=== PATIENT | female | born 1965 | race African-American/Black ===

== ENCOUNTER 2016-12-04 06:40 | Emergency (ER) | payer MEDICAID, OTHER ==
[~2016-12-04] VITALS: Ht 162.6 cm; Wt 70.3 kg
[~2016-12-04 06:40] MED LIST: IBUPROFEN600 MG ORAL; NKM
[2016-12-04 07:12] VITALS: BP 97/64
[2016-12-04] MEDS ORDERED: Ketorolac 60mg Inj IM ONE (07:15)
[2016-12-04] MEDS ORDERED: Cyclobenzaprine 10mg Tab ORAL ONE (07:15)
[2016-12-04 07:18] LABS: APPEARANCE,URINE SLIGHTLY CLOUDY; KETONES,URINE NEGATIVE (NEGATIVE); LEUKOCYTE ESTERASE ,URINE 1+ (NEGATIVE); NITRITE,URINE NEGATIVE (NEGATIVE); PH,URINE 7 (4.5-8.0); PROTEIN,URINE NEGATIVE (NEGATIVE); UROBILINOGEN,URINE NORMAL MG/DL (0.0-1.0)
[2016-12-04 07:30] LABS: BACTERIA,URINE MODERATE /HPF; RBC,URINE 0-2 /HPF (0 - 2); SQUAMOUS EPITHELIAL CELL,UR MODERATE /LPF (NONE/OCC)
--- NOTE | 2016-12-04 08:10 | Emergency Room Report ---
History of Present Illness General Chief Complaint: Pain Source: Patient Present Illness HPI 51 YO F with left sided pain for 4 days. Started after "eating something" but no associated nausea/vomiting/diarrhea, fever/chills or urinary complaints. Has been able to eat/drink normally, no effect on the pain. Pain is left sided , 6/10, non-radiating, worse with palpation, movement. Denies heavy lifting, straining. Didnt take OTC meds. Never had before. Allergies: Coded Allergies: ACETAMINOPHEN (Verified Allergy, Mild, Hives, 05/14/13) AMPICILLIN (Verified Allergy, Mild, Hives, 05/14/13) HYDROCODONE BIT (Verified Allergy, Mild, Hives, 05/14/13) PENICILLINS (Verified Allergy, Mild, Hives, 05/14/13) CEPHALEXIN (Verified Allergy, Unknown, 12/04/16) TRAMADOL (Verified Allergy, Unknown, 12/04/16) Patient History Past Medical History: none Past Surgical History: none Pertinent Family History: none Social History: Reports: smoking Last Menstrual Period: jul 2016 Now: No Immunizations: UTD Reviewed Nursing Documentation: PMH: Agreed, PSxH: Agreed Nursing Documentation-PMH Past Medical History: No Stated History Review of Systems All Other Systems: negative except mentioned in HPI Physical Exam Vital Signs Date Time Temp Pulse Resp B/P Pulse Ox O2 Delivery O2 Flow Rate FiO2 12/04/16 06:45 97.3 93 18 97/64 95 Room Air Sp02 EP Interpretation: reviewed, normal General Appearance: normal inspection, well appearing, no apparent distress, alert, GCS 15, non-toxic Head: normocephalic, atraumatic Eyes: bilateral eye EOMI, bilateral eye PERRL ENT: normal ENT inspection, hearing grossly normal, normal voice Neck: normal inspection, full range of motion, supple, no bony tend Respiratory: normal inspection, lungs clear, normal breath sounds, no respiratory distress, no retraction, no wheezing, chest symmetrical, palpation of chest normal Cardiovascular #1: regular rate, rhythm, no edema Gastrointestinal: normal inspection, normal bowel sounds, non tender, soft, no mass, no guarding, no hernia, no pulsatile mass, no rebound Genitourinary: no CVA tenderness Musculoskeletal: normal inspection, back normal, normal range of motion, Hollis' s Sign negative, other - Left sided torso well pain. TTp. Worse with movement. 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 Pain is NOT abdominal. No focal abd ttp. No chest/rib ttp. VSS. Afebrile. No systemic illness or signs. Worse with movement, likely MSK Improved with IM toradol, flexeril Rx With Ibuprofen, Flexeril RICE, ice/heat, PMD followup DC home Last Vital Signs Date Time Temp Pulse Resp B/P Pulse Ox O2 Delivery O2 Flow Rate FiO2 12/04/16 07:12 97.3 90 18 97/64 95 Room Air Status: improved Disposition: HOME, SELF-CARE Referrals: [facility],REFERRING (PCP) GLADYS MACDONALD M.D. Dec 04, 2016 08:10
[2016-12-04] MEDS ORDERED: IBUPROFEN800 MG ORAL (08:12)
[2016-12-04] MEDS ORDERED: CYCLOBENZAPRINE10 MG ORAL (08:12)
[2016-12-04 08:15] VITALS: BP 101/68
[2016-12-06] MEDS ORDERED: NITROFURANTOIN100 M2 ORAL (08:38)
== END 2016-12-04 08:15 | disposition home or self-care (01) ==
LOC: EMR 07:15
DX: M62.838 Other muscle spasm (principal); Z88.0 Allergy status to penicillin; Z88.6 Allergy status to analgesic agent; F17.200 Nicotine dependence, unspecified, uncomplicated
CPT/HCPCS: 81003; 81025; 87086; 87181; 96372; 99283

== ENCOUNTER 2016-12-28 09:34 | Emergency (ER) | payer MEDICAID ==
[~2016-12-28] VITALS: Ht 162.6 cm; Wt 72.6 kg
[~2016-12-28 09:34] MED LIST changes: +CYCLOBENZAPRINE10 MG ORAL; +IBUPROFEN800 MG ORAL; +NITROFURANTOIN100 M2 ORAL
[2016-12-28 09:49] VITALS: BP 104/71
[2016-12-28] MEDS ORDERED: NKM (09:54)
[2016-12-28] MEDS ORDERED: DIPHENHYDRAMINE25 M1 ORAL (10:56)
[2016-12-28] MEDS ORDERED: PREDNISONE20 MG ORAL (10:56)
[2016-12-28 11:05] VITALS: BP 130/80
--- NOTE | 2017-01-01 15:02 | Emergency Room Report ---
History of Present Illness General Chief Complaint: General Complaint Source: Patient Present Illness HPI 51-year-old female presents to ED complaining of bilateral eye swelling and itchiness x10 days. patient states symptoms started with some itchiness and mild swelling over both eyes. Was given antibiotic ointment by her but states the swelling got worse. Patient notes multiple antibiotic allergies. Patient denies any high pain or blurry vision. Denies any photophobia. Denies any discharge. Denies any sore throat or ear ache. No other aggravating or relieving factors. Denies any other associated symptoms Allergies: Coded Allergies: ACETAMINOPHEN (Verified Allergy, Mild, Hives, 05/14/13) AMPICILLIN (Verified Allergy, Mild, Hives, 05/14/13) HYDROCODONE BIT (Verified Allergy, Mild, Hives, 05/14/13) PENICILLINS (Verified Allergy, Mild, Hives, 05/14/13) CEPHALEXIN (Verified Allergy, Unknown, 12/04/16) CLINDAMYCIN (Verified Allergy, Unknown, 12/28/16) TRAMADOL (Verified Allergy, Unknown, 12/04/16) Patient History Past Medical History: none Past Surgical History: none Pertinent Family History: none Social History: Denies: alcohol use, drug use, smoking Now: No Immunizations: UTD Reviewed Nursing Documentation: PMH: Agreed, PSxH: Agreed Nursing Documentation-PMH Past Medical History: No Stated History Review of Systems All Other Systems: negative except mentioned in HPI Physical Exam Vital Signs Date Time Temp Pulse Resp B/P Pulse Ox O2 Delivery O2 Flow Rate FiO2 12/28/16 09:49 98.4 80 16 104/71 98 Room Air Sp02 EP Interpretation: reviewed, normal General Appearance: no apparent distress, alert, GCS 15, non-toxic Head: normocephalic Eyes: bilateral eye EOMI, bilateral eye PERRL, bilateral eye normal inspection , bilateral eye other - bilateral eyelid swelling, bilateral eye visual acuity ENT: hearing grossly normal, normal pharynx, no angioedema, normal voice, TMs + canals normal Neck: normal inspection Respiratory: chest non-tender, lungs clear, normal breath sounds, speaking full sentences Cardiovascular #1: regular rate, rhythm, no edema Gastrointestinal: normal inspection Rectal: deferred Genitourinary: no CVA tenderness Musculoskeletal: normal inspection Neurologic: alert, oriented x3, responsive, motor strength/tone normal, sensory intact, speech normal Psychiatric: normal inspection Skin: normal inspection Lymphatic: normal inspection Medical Decision Making Diagnostic Impression: Primary Impression: Allergic reaction caused by a drug Qualified Codes: T78.40XA - Allergy, unspecified, initial encounter ER Course Hospital Course 51-year-old female presents ED complaining of bilateral swelling to eyes Differential diagnoses include: Cellulitis, dermatitis, insect bite, abscess Clinical course Patient placed on stretcher. After initial history, physical exam reveals a middle aged female in no acute distress. On exam there is swelling to bilateral eyelids. No erythema or discharge. Symptoms likely exacerbated by antibiotic ointment given patient's extensive allergy history Will treat as allergic reaction. No evidence of stridor or tongue swelling or shortness of breath Diagnosis - allergic reaction caused by a drug stable and discharged to home with prescription for benedryl, prednisone. Instructed to followup with PMD. Instructed return to ED if symptoms recur or worsen Last Vital Signs Date Time Temp Pulse Resp B/P Pulse Ox O2 Delivery O2 Flow Rate FiO2 12/28/16 11:05 72 16 130/80 98 Room Air 12/28/16 09:49 98.4 Status: improved Disposition: HOME, SELF-CARE Condition: Stable Scripts Prednisone* (PREDNISONE*) 20 Mg Tablet 40 MG ORAL DAILY, #10 TAB Prov: VIANNEY MCKEON M.D. 12/28/16 Diphenhydramine Hcl* (DIPHENHYDRAMINE HCL*) 25 Mg Capsule 25 MG ORAL Q6H Y for Itching, #30 CAP 0 Refills Prov: VIANNEY MCKEON M.D. 12/28/16 Patient Instructions: Drug Allergy VIANNEY MCKEON M.D. Jan 01, 2017 15:02
== END 2016-12-28 11:07 | disposition home or self-care (01) ==
LOC: EMR 10:04
DX: T78.40XA Allergy, unspecified, initial encounter (principal); X58.XXXA Exposure to other specified factors, initial encounter; Z88.0 Allergy status to penicillin; Z88.8 Allergy status to other drugs, medicaments and biological substances
CPT/HCPCS: 99284

== ENCOUNTER 2017-08-30 17:28 | Inpatient (IN) | payer MEDICAID ==
[~2017-08-30] VITALS: Ht 162.6 cm; Wt 80.7 kg
[~2017-08-30 17:28] MED LIST changes: +DIPHENHYDRAMINE25 M1 ORAL; +PREDNISONE20 MG ORAL
[2017-08-30] MEDS ORDERED: FERROUS SULFAT325 MG ORAL (17:58)
[2017-08-30 18:00] VITALS: BP 127/76
--- NOTE | 2017-08-30 18:19 | Emergency Room Report ---
History of Present Illness General Chief Complaint: Chest Pain Source: Patient Present Illness HPI Patient is a 52-year-old female presented after increased chest pain for the past 30 minutes. Patient reported having increased sharp pain. This did not radiate. Patient had reportedly had a syncopal episode several days ago. Patient reports having increased pain and swelling to her right knee and leg. Patient reports having no prior cardiac history. She states she was recently diagnosed as having a right bundle branch block. Patient states that she had not been having any vomiting or diarrhea. She denies any fever. She reports being a smoker Allergies: Coded Allergies: ACETAMINOPHEN (Verified Allergy, Mild, Hives, 05/14/13) AMPICILLIN (Verified Allergy, Mild, Hives, 05/14/13) HYDROCODONE BIT (Verified Allergy, Mild, Hives, 05/14/13) PENICILLINS (Verified Allergy, Mild, Hives, 05/14/13) CEPHALEXIN (Verified Allergy, Unknown, 12/04/16) CLINDAMYCIN (Verified Allergy, Unknown, 12/28/16) TRAMADOL (Verified Allergy, Unknown, 12/04/16) Patient History Past Medical History: see triage record Reviewed Nursing Documentation: PMH: Agreed, PSxH: Agreed Nursing Documentation-PMH Hx Cardiac Problems: Yes - RIGHT BUNDLE BRANCH BLOCK Review of Systems All Other Systems: negative except mentioned in HPI Physical Exam Vital Signs Date Time Temp Pulse Resp B/P (MAP) Pulse Ox O2 Delivery O2 Flow Rate FiO2 08/30/17 17:31 97.7 78 20 122/82 99 Room Air Sp02 EP Interpretation: reviewed, normal General Appearance: normal inspection, well appearing, no apparent distress, alert, GCS 15 Head: atraumatic ENT: normal ENT inspection, hearing grossly normal, normal voice Neck: normal inspection, full range of motion, supple, no bony tend Respiratory: normal inspection, lungs clear, normal breath sounds, no respiratory distress, no retraction, no wheezing Cardiovascular #1: regular rate, rhythm, no edema Gastrointestinal: normal inspection, normal bowel sounds, non tender, soft, no guarding, no hernia Genitourinary: no CVA tenderness Musculoskeletal: normal inspection, back normal, normal range of motion Neurologic: normal inspection, alert, oriented x3, responsive, 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 Differential diagnosis included but was not limited to acute coronary syndrome, pulmonary embolism, pneumonia, aortic dissection, shingles, pneumothorax, aortic dissection, esophageal rupture, pericarditis. Because of complexity of patient's case laboratory testing and imaging studies were ordered. EKG interpreted by me showed normal sinus rhythm with a rate of 67 with incomplete right bundle-branch block. There were no acute ST or T wave changes. Rhythm strip showed normal sinus rhythm with a rate of 65 without PVCs or ectopy. The patient was given aspirin. Chest x-ray one view interpreted by me showed normal heart size without evident infiltrate CT of the chest read by radiology showed no evidence of a pulmonary embolism or aortic dissection. Dr. Petr Mcbride was contacted for inpatient management due to panel physician Labs Test 08/30/17 17:48 08/30/17 19:05 White Blood Count 9.7 K/UL (4.8-10.8) Red Blood Count 4.14 M/UL (4.20-5.40) Hemoglobin 13.5 G/DL (12.0-16.0) Hematocrit 40.7 % (37.0-47.0) Mean Corpuscular Volume 98 FL (80-99) Mean Corpuscular Hemoglobin 32.5 PG (27.0-31.0) Mean Corpuscular Hemoglobin Concent 33.1 G/DL (32.0-36.0) Red Cell Distribution Width 12.6 % (11.6-14.8) Platelet Count 197 K/UL (150-450) Mean Platelet Volume 8.6 FL (6.5-10.1) Neutrophils (%) (Auto) 43.8 % (45.0-75.0) Lymphocytes (%) (Auto) 43.7 % (20.0-45.0) Monocytes (%) (Auto) 11.3 % (1.0-10.0) Eosinophils (%) (Auto) 0.2 % (0.0-3.0) Basophils (%) (Auto) 1.1 % (0.0-2.0) D-Dimer 0.47 mg/L FEU (0.00-0.49) Sodium Level 142 MMOL/L (136-145) Potassium Level 3.5 MMOL/L (3.5-5.1) Chloride Level 104 MMOL/L (98-107) Carbon Dioxide Level 28 MMOL/L (21-32) Anion Gap 10 mmol/L (5-15) Blood Urea Nitrogen 12 mg/dL (7-18) Creatinine 1.0 MG/DL (0.55-1.30) Estimat Glomerular Filtration Rate > 60 mL/min (>60) Glucose Level 99 MG/DL (74-106) Calcium Level 9.3 MG/DL (8.5-10.1) Total Bilirubin 0.2 MG/DL (0.2-1.0) Aspartate Amino Transf (AST/SGOT) 27 U/L (15-37) Alanine Aminotransferase (ALT/SGPT) 45 U/L (12-78) Alkaline Phosphatase 127 U/L (46-116) Total Creatine Kinase 139 U/L (26-308) Creatine Kinase MB 1.2 NG/ML (0.0-3.6) Creatine Kinase MB Relative Index 0.8 Troponin I 0.000 ng/mL (0.000-0.056) Pro-B-Type Natriuretic Peptide 15 pg/mL (0-125) Total Protein 7.7 G/DL (6.4-8.2) Albumin 3.6 G/DL (3.4-5.0) Globulin 4.1 g/dL Albumin/Globulin Ratio 0.9 (1.0-2.7) Urine Color Pale yellow Urine Appearance Clear Urine pH 8 (4.5-8.0) Urine Specific [place] 1.010 (1.005-1.035) Urine Protein Negative (NEGATIVE) Urine Glucose (UA) Negative (NEGATIVE) Urine Ketones Negative (NEGATIVE) Urine Occult Blood Negative (NEGATIVE) Urine Nitrite Negative (NEGATIVE) Urine Bilirubin Negative (NEGATIVE) Urine Urobilinogen Normal MG/DL (0.0-1.0) Urine Leukocyte Esterase Negative (NEGATIVE) Urine Opiates Screen Negative (NEGATIVE) Urine Barbiturates Screen Negative (NEGATIVE) Phencyclidine (PCP) Screen Negative (NEGATIVE) Urine Amphetamines Screen Negative (NEGATIVE) Urine Benzodiazepines Screen Negative (NEGATIVE) Urine Cocaine Screen Negative (NEGATIVE) Urine Marijuana (THC) Screen Positive (NEGATIVE) EKG Diagnostic Results Rate: normal Rhythm: NSR ST Segments: no acute changes ASA given to the pt in ED: Yes Rhythm Strip Diag. Results EP Interpretation: yes Rhythm: NSR, no PVC's, no ectopy Last Vital Signs Date Time Temp Pulse Resp B/P (MAP) Pulse Ox O2 Delivery O2 Flow Rate FiO2 08/30/17 17:31 97.7 78 20 122/82 99 Room Air Status: unchanged Disposition: ADMITTED INPATIENT Condition: Serious Yogesh Streeter Aug 30, 2017 18:18
[2017-08-30 18:26] LABS: BASOPHILS % (AUTO) 1.1 % (0.0-2.0); EOSINOPHILS % (AUTO) 0.2 % (0.0-3.0); LYMPHOCYTES % (AUTO) 43.7 % (20.0-45.0); MEAN CORPUSCULAR HEMOGLOBIN 32.5 PG (27.0-31.0); MEAN CORPUSCULAR HGB CONC 33.1 G/DL (32.0-36.0); MEAN CORPUSCULAR VOLUME 98 FL (80-99); MEAN PLATELET VOLUME 8.6 FL (6.5-10.1); MONOCYTES % (AUTO) 11.3 % (1.0-10.0); NEUTROPHILS % (AUTO) 43.8 % (45.0-75.0); PLATELET COUNT 197 K/UL (150-450); RED BLOOD COUNT 4.14 M/UL (4.20-5.40); RED CELL DISTRIBUTION WIDTH 12.6 % (11.6-14.8); WHITE BLOOD COUNT 9.7 K/UL (4.8-10.8)
[2017-08-30] MEDS ORDERED: Aspirin Baby 81mg ORAL ONE (18:30)
[2017-08-30] MEDS ORDERED: WOMEN'S MULTI200 MCG PO (18:42)
[2017-08-30 18:48] LABS: ALANINE AMINOTRANSFERASE 45 U/L (12-78); ALBUMIN/GLOBULIN RATIO 0.9 (1.0-2.7); ANION GAP 10 mmol/L (5-15); ASPARTATE AMINO TRANSFERASE 27 U/L (15-37); CALCIUM 9.3 MG/DL (8.5-10.1); CARBON DIOXIDE 28 MMOL/L (21-32); CHLORIDE 104 MMOL/L (98-107); CKMB 1.2 NG/ML (0.0-3.6); GLOMERULAR FILTRATION RATE > 60 mL/min (>60); POTASSIUM 3.5 MMOL/L (3.5-5.1); SODIUM 142 MMOL/L (136-145); TOTAL PROTEIN 7.7 G/DL (6.4-8.2)
[2017-08-30 19:22] LABS: APPEARANCE,URINE CLEAR; KETONES,URINE NEGATIVE (NEGATIVE); LEUKOCYTE ESTERASE ,URINE NEGATIVE (NEGATIVE); NITRITE,URINE NEGATIVE (NEGATIVE); PH,URINE 8 (4.5-8.0); PROTEIN,URINE NEGATIVE (NEGATIVE); UROBILINOGEN,URINE NORMAL MG/DL (0.0-1.0)
[2017-08-30 20:15] VITALS: BP 101/64
[2017-08-30] MEDS ORDERED: Ketorolac 30mg Inj IV PRN (22:00)
[2017-08-30] MEDS ORDERED: Nitroglycerin Subl 0.4mg tab SL PRN (22:00)
[2017-08-30] MEDS ORDERED: dilTIAZem HCl 25mg/5ml Inj IV PRN (22:00)
[2017-08-30] MEDS ORDERED: Enalaprilat 2.5mg/2ml Inj IV PRN (22:00)
[2017-08-30] MEDS ORDERED: Miralax 17gm pkt ORAL PRN (22:00)
[2017-08-30] MEDS ORDERED: Albuterol/Ipratropium 3ml neb HHN PRN (22:00)
--- NOTE | 2017-08-30 22:38 | History & Physical ---
History and Physical History & Physicial Petr Mcbride MD Aug 30, 2017 22:38
[2017-08-31] VITALS: BP 108/62
--- NOTE | 2017-08-31 | History and Physical Report ---
DATE OF ADMISSION: 08/30/2017 CHIEF COMPLAINT: Chest pain. HISTORY OF PRESENT ILLNESS: This is a 52-year-old female, denies any past medical history and past surgical history except the right bundle-branch block, who presented to emergency room complaining about chest pain mostly left-sided chest pain, retrosternal. She stated that does not radiate to the neck, back, or shoulder. It is not associated with nausea or vomiting, not associated with diaphoresis, no exacerbated factor. She stated she has been having right knee pain and swelling,went to see her primary doctor a couple of weeks ago and was diagnosed with right bundle-branch block. After was worked up for syncope, she has been having multiple recurrent syncope, last time was three weeks ago. Shortly after initial evaluation in the emergency room, the patient was admitted to the hospital with chest pain, possible acute coronary syndrome. PAST MEDICAL HISTORY AND PAST SURGICAL HISTORY: As above. History of breast nodule biopsy as well as right bundle-branch block, recently diagnosed. MEDICATIONS: At home is none. ALLERGIES: Acetaminophen, ampicillin, [place], penicillin, Keflex, , and tramadol. SOCIAL HISTORY: The patient smokes 10 cigarettes a day over 30 years pack smoker. Drinks wine at night one bottle on the weekends. She smokes marijuana. FAMILY HISTORY: Sister and brother with history of epilepsy and mother with breast cancer. Father with Alzheimer. REVIEW OF SYSTEMS: Mostly as above. Denies any dysuria, frequency, hematuria, or hematochezia. Denies any hemoptysis or hematochezia. Denies any suicidal or homicidal ideation. Denies any loss of consciousness. Denies any double vision, however, the patient had syncopal episodes in the past, recurrent. Denies any suicidal or homicidal ideation. Denies any epilepsy. PHYSICAL EXAMINATION: VITAL SIGNS: On admission, temperature 97.7 degrees, pulse of 78, respirations 20, and blood pressure 122/82. GENERAL: The patient awake, responsive, no acute distress. HEAD AND NECK: Pupils are equal and reactive to light. Extraocular movements are intact. NECK: Supple. No JVD. LUNGS: Good air entry. No wheezing or rales. HEART: S1 and S2. Regular rhythm. No gallops. ABDOMEN: Soft, nondistended, and nontender. Positive bowel sounds. EXTREMITIES: No cyanosis, clubbing, or edema. NEUROLOGIC: Cranial nerves II through XII grossly intact. Motor is 5/5 in all extremities. LABORATORY AND DIAGNOSTIC DATA: On admission, EKG sinus rhythm with marked sinus arrhythmia, ventricular rate of 67. No ST elevation was noted, no right bundle-branch was identified. The patient has marked sinus arrhythmias. Laboratory significant for WBC of 9.7, hemoglobin of 13, hematocrit 40, and platelet is 197. First troponin 0.000. Sodium is 142, potassium 2.5, chloride 104, bicarbonate 28, BUN 12, and creatinine 1.0. AST of 27 and ALT of 45. ProBNP of 15. Albumin is 3.6. D-dimer is 0.47. Urine drug screen is marijuana. UA is essentially unremarkable. ASSESSMENT: 1. Chest pain, possible acute coronary syndrome. 2. Prior history of syncope. PLAN: Admit the patient to telemetry. We will follow up with a stress test in the morning. A 2D echocardiogram. Discussed with the patient as well as family member at the bedside extensively with regard to plan of care. cardiac enzymes, aspirin. Discussed with Dr. Carpio, pulmonary critical care and Dr. Conor Krause from Cardiology. Petr Mcbride M.D. DR: Roni JOB#: [id number] CC:
[2017-08-31 08:00] VITALS: BP 94/60
--- NOTE | 2017-08-31 08:25 | Cardiology Progress Note ---
Assessment/Plan Assessment/Plan The patient is seen and examined, full consult note will be dictated shortly. Objective Last 24 Hour Vital Signs Date Time Temp Pulse Resp B/P (MAP) Pulse Ox O2 Delivery O2 Flow Rate FiO2 08/31/17 04:00 63 08/31/17 04:00 97.5 64 18 94 Room Air 08/31/17 01:20 59 18 Room Air 21 08/31/17 00:00 58 08/31/17 00:00 97.2 60 18 108/62 96 Room Air 08/30/17 21:27 67 08/30/17 20:50 98.5 71 15 101/64 99 Room Air 08/30/17 20:15 71 15 101/64 99 Room Air 08/30/17 18:00 98.5 77 12 127/76 Room Air 08/30/17 18:00 77 Room Air 08/30/17 17:31 97.7 78 20 122/82 99 Room Air Laboratory Tests Test 08/30/17 17:48 08/30/17 19:05 08/31/17 07:55 White Blood Count 9.7 K/UL (4.8-10.8) Pending Red Blood Count 4.14 M/UL (4.20-5.40) L Pending Hemoglobin 13.5 G/DL (12.0-16.0) Pending Hematocrit 40.7 % (37.0-47.0) Pending Mean Corpuscular Volume 98 FL (80-99) Pending Mean Corpuscular Hemoglobin 32.5 PG (27.0-31.0) H Pending Mean Corpuscular Hemoglobin Concent 33.1 G/DL (32.0-36.0) Pending Red Cell Distribution Width 12.6 % (11.6-14.8) Pending Platelet Count 197 K/UL (150-450) Pending Mean Platelet Volume 8.6 FL (6.5-10.1) Pending Neutrophils (%) (Auto) 43.8 % (45.0-75.0) L Pending Lymphocytes (%) (Auto) 43.7 % (20.0-45.0) Pending Monocytes (%) (Auto) 11.3 % (1.0-10.0) H Pending Eosinophils (%) (Auto) 0.2 % (0.0-3.0) Pending Basophils (%) (Auto) 1.1 % (0.0-2.0) Pending D-Dimer 0.47 mg/L FEU (0.00-0.49) Sodium Level 142 MMOL/L (136-145) Potassium Level 3.5 MMOL/L (3.5-5.1) Chloride Level 104 MMOL/L (98-107) Carbon Dioxide Level 28 MMOL/L (21-32) Anion Gap 10 mmol/L (5-15) Blood Urea Nitrogen 12 mg/dL (7-18) Creatinine 1.0 MG/DL (0.55-1.30) Estimat Glomerular Filtration Rate > 60 mL/min (>60) Glucose Level 99 MG/DL (74-106) Calcium Level 9.3 MG/DL (8.5-10.1) Total Bilirubin 0.2 MG/DL (0.2-1.0) Aspartate Amino Transf (AST/SGOT) 27 U/L (15-37) Alanine Aminotransferase (ALT/SGPT) 45 U/L (12-78) Alkaline Phosphatase 127 U/L (46-116) H Total Creatine Kinase 139 U/L (26-308) Creatine Kinase MB 1.2 NG/ML (0.0-3.6) Creatine Kinase MB Relative Index 0.8 Troponin I 0.000 ng/mL (0.000-0.056) Pending Pro-B-Type Natriuretic Peptide 15 pg/mL (0-125) Total Protein 7.7 G/DL (6.4-8.2) Albumin 3.6 G/DL (3.4-5.0) Globulin 4.1 g/dL Albumin/Globulin Ratio 0.9 (1.0-2.7) L Urine Color Pale yellow Urine Appearance Clear Urine pH 8 (4.5-8.0) Urine Specific [place] 1.010 (1.005-1.035) Urine Protein Negative (NEGATIVE) Urine Glucose (UA) Negative (NEGATIVE) Urine Ketones Negative (NEGATIVE) Urine Occult Blood Negative (NEGATIVE) Urine Nitrite Negative (NEGATIVE) Urine Bilirubin Negative (NEGATIVE) Urine Urobilinogen Normal MG/DL (0.0-1.0) Urine Leukocyte Esterase Negative (NEGATIVE) Urine Opiates Screen Negative (NEGATIVE) Urine Barbiturates Screen Negative (NEGATIVE) Phencyclidine (PCP) Screen Negative (NEGATIVE) Urine Amphetamines Screen Negative (NEGATIVE) Urine Benzodiazepines Screen Negative (NEGATIVE) Urine Cocaine Screen Negative (NEGATIVE) Urine Marijuana (THC) Screen Positive (NEGATIVE) H Prothrombin Time Pending Prothromb Time International Ratio Pending Activated Partial Thromboplast Time Pending C-Reactive Protein, Quantitative Pending Triglycerides Level Pending Cholesterol Level Pending LDL Cholesterol Pending HDL Cholesterol Pending Cholesterol/HDL Ratio Pending Thyroid Stimulating Hormone (TSH) Pending HERIBERTO REDDY Aug 31, 2017 08:25
[2017-08-31 08:29] LABS: BASOPHILS % (AUTO) 0.8 % (0.0-2.0); EOSINOPHILS % (AUTO) 0.3 % (0.0-3.0); LYMPHOCYTES % (AUTO) 36.6 % (20.0-45.0); MEAN CORPUSCULAR HEMOGLOBIN 32.9 PG (27.0-31.0); MEAN CORPUSCULAR HGB CONC 33.4 G/DL (32.0-36.0); MEAN CORPUSCULAR VOLUME 99 FL (80-99); MONOCYTES % (AUTO) 11.4 % (1.0-10.0); NEUTROPHILS % (AUTO) 50.9 % (45.0-75.0); PLATELET COUNT 207 K/UL (150-450); RED BLOOD COUNT 3.88 M/UL (4.20-5.40); RED CELL DISTRIBUTION WIDTH 12.5 % (11.6-14.8); WHITE BLOOD COUNT 7.1 K/UL (4.8-10.8)
[2017-08-31 08:34] LABS: INR 0.9 (0.9-1.1); PROTHROMBIN TIME 9.4 SEC (9.30-11.50)
[2017-08-31 08:53] LABS: CHOLESTEROL 189 MG/DL (< 200); CHOLESTEROL/HDL RATIO 3.6 (3.3-4.4); CRP QUANT 1.8 mg/dL (0.00-0.90); THYROID STIMULATING HORMONE 2.546 uiU/mL (0.360-3.740)
--- NOTE | 2017-08-31 08:53 | Diagnostic Imaging Report ---
Indication: SOB Technique: One view of the chest Comparison: none Findings: Lungs and pleural spaces are clear. Heart size is normal. Impression: No acute process
[2017-08-31] MEDS ORDERED: Aspirin Baby 81mg ORAL SCH (09:00)
[2017-08-31] MEDS ORDERED: Heparin 5000 units/ml inj SUBQ SCH (09:00)
--- NOTE | 2017-08-31 09:48 | Diagnostic Imaging Report ---
ndication: Chest pain, shortness of breath Technique: IV administration nonionic contrast. Spiral acquisitions obtained from the lung bases to the lung apices. Multiplanar and 3-D reconstructions were generated. Total dose length product IV mGycm. CTDIvol(s) 12, 63, 19 mGy. Dose reduction achieved using automated exposure control Comparison: None Findings: There is good quality opacification of the pulmonary arteries. No intraluminal filling defects or other findings to suggest acute pulmonary embolus are demonstrated. No right ventricular dilatation or pulmonary arterial dilatation is demonstrated. No thoracic aortic aneurysm or dissection. Prominent superior intercostal vein is incidentally noted. The lungs and pleural spaces are clear other than minimal posterior dependent atelectatic changes. Right breast demonstrates a 15 mm soft tissue attenuation nodule. No axillary or chest wall mass or adenopathy otherwise. The included portions of the thyroid are unremarkable. No mediastinal or hilar mass or adenopathy. Normal heart size. No pericardial effusion The included upper abdominal anatomy is unremarkable. Impression: No evidence of acute pulmonary embolus or other acute thoracic pathology This agrees with the preliminary interpretation provided overnight by [facility] cardiology service 15 mm right breast nodule. Further mammographic and sonographic evaluation recommended. This finding was not described on the [facility] report. Dr. Mcbride notified of this at the time of interpretation The CT scanner at [facility] is accredited by the [employer] and the scans are performed using protocols designed to limit radiation exposure to as low as reasonably achievable to attain images of sufficient resolution adequate for diagnostic evaluation.
--- NOTE | 2017-08-31 11:58 | Consultation ---
History of Present Illness General Date patient seen: Aug 30, 2017 Chief Complaint: Chest Pain Referring physician: dr Mcbride Present Illness HPI 52-year-old female presented after increased chest pain for the past 30 minutes. Patient had reportedly had a syncopal episode several days ago. Patient reports having increased pain and swelling to her right knee and leg. She was recently diagnosed as having a right bundle branch block. she is admitted to telemetry for further work up. Allergies: Coded Allergies: AMPICILLIN (Verified Allergy, Mild, Hives, 05/14/13) HYDROCODONE BIT (Verified Allergy, Mild, Hives, 05/14/13) PENICILLINS (Verified Allergy, Mild, Hives, 05/14/13) CEPHALEXIN (Verified Allergy, Unknown, 12/04/16) CLINDAMYCIN (Verified Allergy, Unknown, 12/28/16) TRAMADOL (Verified Allergy, Unknown, 12/04/16) Medication History Scheduled Ferrous Sulfate* (Ferrous Sulfate*), 325 MG ORAL TWICE A DAY, (Reported) Folic Acid/Multivit-Minerals (Women's Multivitamin Gummies), 200 MCG PO DAILY, ( Reported) Discontinued Medications Diphenhydramine Hcl* (Diphenhydramine Hcl*), 25 MG ORAL Q6H PRN for Itching Discontinued Reason: Therapy completed Prednisone* (Prednisone*), 40 MG ORAL DAILY Discontinued Reason: Therapy completed Patient History Healthcare decision maker Resuscitation status Full Code Advanced Directive on File Past Medical/Surgical History Past Medical/Surgical History: (1) No significant past medical history Review of Systems All Other Systems: negative except mentioned in HPI Physical Exam General Appearance: WD/WN Lines, tubes and drains: peripheral, PICC HEENT: normocephalic, atraumatic Neck: non-tender, normal alignment Respiratory/Chest: chest wall non-tender, lungs clear Breasts: no masses Cardiovascular/Chest: normal peripheral pulses Abdomen: normal bowel sounds, soft, hyperactive bowel sounds Extremities: normal range of motion Last 24 Hour Vital Signs Date Time Temp Pulse Resp B/P (MAP) Pulse Ox O2 Delivery O2 Flow Rate FiO2 08/31/17 08:00 97.6 59 21 94/60 98 Room Air 08/31/17 08:00 54 08/31/17 06:52 56 18 Room Air 21 08/31/17 04:00 63 08/31/17 04:00 97.5 64 18 94 Room Air 08/31/17 01:20 59 18 Room Air 21 08/31/17 00:00 58 08/31/17 00:00 97.2 60 18 108/62 96 Room Air 08/30/17 21:27 67 08/30/17 20:50 98.5 71 15 101/64 99 Room Air 08/30/17 20:15 71 15 101/64 99 Room Air 08/30/17 18:00 98.5 77 12 127/76 Room Air 08/30/17 18:00 77 Room Air 08/30/17 17:31 97.7 78 20 122/82 99 Room Air Laboratory Tests Test 08/30/17 17:48 08/30/17 19:05 08/31/17 07:55 White Blood Count 9.7 K/UL (4.8-10.8) 7.1 K/UL (4.8-10.8) Red Blood Count 4.14 M/UL (4.20-5.40) L 3.88 M/UL (4.20-5.40) L Hemoglobin 13.5 G/DL (12.0-16.0) 12.8 G/DL (12.0-16.0) Hematocrit 40.7 % (37.0-47.0) 38.2 % (37.0-47.0) Mean Corpuscular Volume 98 FL (80-99) 99 FL (80-99) Mean Corpuscular Hemoglobin 32.5 PG (27.0-31.0) H 32.9 PG (27.0-31.0) H Mean Corpuscular Hemoglobin Concent 33.1 G/DL (32.0-36.0) 33.4 G/DL (32.0-36.0) Red Cell Distribution Width 12.6 % (11.6-14.8) 12.5 % (11.6-14.8) Platelet Count 197 K/UL (150-450) 207 K/UL (150-450) Mean Platelet Volume 8.6 FL (6.5-10.1) 9.0 FL (6.5-10.1) Neutrophils (%) (Auto) 43.8 % (45.0-75.0) L 50.9 % (45.0-75.0) Lymphocytes (%) (Auto) 43.7 % (20.0-45.0) 36.6 % (20.0-45.0) Monocytes (%) (Auto) 11.3 % (1.0-10.0) H 11.4 % (1.0-10.0) H Eosinophils (%) (Auto) 0.2 % (0.0-3.0) 0.3 % (0.0-3.0) Basophils (%) (Auto) 1.1 % (0.0-2.0) 0.8 % (0.0-2.0) D-Dimer 0.47 mg/L FEU (0.00-0.49) Sodium Level 142 MMOL/L (136-145) Potassium Level 3.5 MMOL/L (3.5-5.1) Chloride Level 104 MMOL/L (98-107) Carbon Dioxide Level 28 MMOL/L (21-32) Anion Gap 10 mmol/L (5-15) Blood Urea Nitrogen 12 mg/dL (7-18) Creatinine 1.0 MG/DL (0.55-1.30) Estimat Glomerular Filtration Rate > 60 mL/min (>60) Glucose Level 99 MG/DL (74-106) Calcium Level 9.3 MG/DL (8.5-10.1) Total Bilirubin 0.2 MG/DL (0.2-1.0) Aspartate Amino Transf (AST/SGOT) 27 U/L (15-37) Alanine Aminotransferase (ALT/SGPT) 45 U/L (12-78) Alkaline Phosphatase 127 U/L (46-116) H Total Creatine Kinase 139 U/L (26-308) Creatine Kinase MB 1.2 NG/ML (0.0-3.6) Creatine Kinase MB Relative Index 0.8 Troponin I 0.000 ng/mL (0.000-0.056) 0.000 ng/mL (0.000-0.056) Pro-B-Type Natriuretic Peptide 15 pg/mL (0-125) Total Protein 7.7 G/DL (6.4-8.2) Albumin 3.6 G/DL (3.4-5.0) Globulin 4.1 g/dL Albumin/Globulin Ratio 0.9 (1.0-2.7) L Urine Color Pale yellow Urine Appearance Clear Urine pH 8 (4.5-8.0) Urine Specific [place] 1.010 (1.005-1.035) Urine Protein Negative (NEGATIVE) Urine Glucose (UA) Negative (NEGATIVE) Urine Ketones Negative (NEGATIVE) Urine Occult Blood Negative (NEGATIVE) Urine Nitrite Negative (NEGATIVE) Urine Bilirubin Negative (NEGATIVE) Urine Urobilinogen Normal MG/DL (0.0-1.0) Urine Leukocyte Esterase Negative (NEGATIVE) Urine Opiates Screen Negative (NEGATIVE) Urine Barbiturates Screen Negative (NEGATIVE) Phencyclidine (PCP) Screen Negative (NEGATIVE) Urine Amphetamines Screen Negative (NEGATIVE) Urine Benzodiazepines Screen Negative (NEGATIVE) Urine Cocaine Screen Negative (NEGATIVE) Urine Marijuana (THC) Screen Positive (NEGATIVE) H Prothrombin Time 9.4 SEC (9.30-11.50) Prothromb Time International Ratio 0.9 (0.9-1.1) Activated Partial Thromboplast Time 21 SEC (23-33) L C-Reactive Protein, Quantitative 1.8 mg/dL (0.00-0.90) H Triglycerides Level 53 MG/DL (0-200) Cholesterol Level 189 MG/DL (< 200) LDL Cholesterol 124 mg/dL (<100) H HDL Cholesterol 52 MG/DL (40-60) Cholesterol/HDL Ratio 3.6 (3.3-4.4) Thyroid Stimulating Hormone (TSH) 2.546 uiU/mL (0.360-3.740) Height (Feet): 5 Height (Inches): 4.00 Weight (Pounds): 178 Medications Current Medications Medications (Trade) Dose Ordered Sig/Precious Route PRN Reason Start Time Stop Time Status Last Admin Dose Admin Albuterol/ Ipratropium (Albuterol/ Ipratropium) 3 ml Q4H PRN HHN Shortness of Breath 08/30/17 22:00 09/04/17 21:59 Aspirin (ASA) 81 mg DAILY ORAL 09/01/17 09:00 10/01/17 08:59 Diltiazem HCl (Cardizem) 10 mg EVERY HOUR PRN IV heart rate more than 120, 08/30/17 22:00 09/29/17 21:59 Enalaprilat (Vasotec) 2.5 mg Q6H PRN IV sbp more than 160 08/30/17 22:00 09/29/17 21:59 Heparin Sodium (Porcine) (Heparin 5000 units/ml) 5,000 units EVERY 12 HOURS SUBQ 08/31/17 09:00 09/30/17 08:59 08/31/17 08:18 Ketorolac Tromethamine (Toradol 30mg) 30 mg Q6H PRN IV moderate pain ( 4-6) 08/30/17 22:00 09/04/17 21:59 Nitroglycerin (Ntg) 0.4 mg Every 5 Minutes PRN SL Prn Chest Pain 08/30/17 22:00 09/29/17 21:59 Ondansetron HCl (Zofran) 4 mg Q6H PRN IVP Nausea & Vomiting 08/30/17 22:00 09/29/17 21:59 Polyethylene Glycol (Miralax) 17 gm DAILYPRN PRN ORAL Constipation 08/30/17 22:00 09/29/17 21:59 Temazepam (Restoril) 15 mg HSPRN PRN ORAL Insomnia 08/30/17 22:00 09/06/17 21:59 Assessment/Plan Problem List: (1) ACS (acute coronary syndrome) ICD Codes: I24.9 - Acute ischemic heart disease, unspecified SNOMED: 056728643 (2) Syncope ICD Codes: R55 - Syncope and collapse SNOMED: 427675215 Assessment/Plan serial ekg echo cardio to see stress testing keep in [facility] Calle Aug 31, 2017 11:58
[2017-08-31 12:00] VITALS: BP 108/59
--- NOTE | 2017-08-31 12:00 | Pulmonology Progress Note ---
Assessment/Plan Problems: (1) ACS (acute coronary syndrome) (2) Syncope Assessment/Plan stress study pending symptomatic treatment dc home if stress study negative. Subjective ROS Limited/Unobtainable: No Constitutional: Reports: no symptoms Respiratory: Reports: no symptoms Allergies: Coded Allergies: AMPICILLIN (Verified Allergy, Mild, Hives, 05/14/13) HYDROCODONE BIT (Verified Allergy, Mild, Hives, 05/14/13) PENICILLINS (Verified Allergy, Mild, Hives, 05/14/13) CEPHALEXIN (Verified Allergy, Unknown, 12/04/16) CLINDAMYCIN (Verified Allergy, Unknown, 12/28/16) TRAMADOL (Verified Allergy, Unknown, 12/04/16) Objective Last 24 Hour Vital Signs Date Time Temp Pulse Resp B/P (MAP) Pulse Ox O2 Delivery O2 Flow Rate FiO2 08/31/17 08:00 97.6 59 21 94/60 98 Room Air 08/31/17 08:00 54 08/31/17 06:52 56 18 Room Air 08/31/17 04:00 63 08/31/17 04:00 97.5 64 18 94 Room Air 08/31/17 01:20 59 18 Room Air 21 08/31/17 00:00 58 08/31/17 00:00 97.2 60 18 108/62 96 Room Air 08/30/17 21:27 67 08/30/17 20:50 98.5 71 15 101/64 99 Room Air 08/30/17 20:15 71 15 101/64 99 Room Air 08/30/17 18:00 98.5 77 12 127/76 Room Air 08/30/17 18:00 77 Room Air 08/30/17 17:31 97.7 78 20 122/82 99 Room Air General Appearance: WD/WN HEENT: normocephalic, atraumatic Respiratory/Chest: chest wall non-tender, lungs clear Breasts: no masses Cardiovascular: normal peripheral pulses, regularly irregular Abdomen: normal bowel sounds, soft, non tender Genitourinary: normal external genitalia Laboratory Tests 08/30/17 17:48: White Blood Count 9.7, Red Blood Count 4.14L, Hemoglobin 13.5, Hematocrit 40.7, Mean Corpuscular Volume 98, Mean Corpuscular Hemoglobin 32.5H, Mean Corpuscular Hemoglobin Concent 33.1, Red Cell Distribution Width 12.6, Platelet Count 197, Mean Platelet Volume 8.6, Neutrophils (%) (Auto) 43.8L, Lymphocytes (%) (Auto) 43.7, Monocytes (%) (Auto) 11.3H, Eosinophils (%) (Auto) 0.2, Basophils (%) ( Auto) 1.1, D-Dimer 0.47, Sodium Level 142, Potassium Level 3.5, Chloride Level 104, Carbon Dioxide Level 28, Anion Gap 10, Blood Urea Nitrogen 12, Creatinine 1.0, Estimat Glomerular Filtration Rate > 60, Glucose Level 99, Calcium Level 9.3, Total Bilirubin 0.2, Aspartate Amino Transf (AST/SGOT) 27, Alanine Aminotransferase (ALT/SGPT) 45, Alkaline Phosphatase 127H, Total Creatine Kinase 139, Creatine Kinase MB 1.2, Creatine Kinase MB Relative Index 0.8, Troponin I 0.000, Pro-B-Type Natriuretic Peptide 15, Total Protein 7.7, Albumin 3.6, Globulin 4.1, Albumin/Globulin Ratio 0.9L 08/30/17 19:05: Urine Color Pale yellow, Urine Appearance Clear, Urine pH 8, Urine Specific [place] 1.010, Urine Protein Negative, Urine Glucose (UA) Negative, Urine Ketones Negative, Urine Occult Blood Negative, Urine Nitrite Negative, Urine Bilirubin Negative, Urine Urobilinogen Normal, Urine Leukocyte Esterase Negative , Urine Opiates Screen Negative, Urine Barbiturates Screen Negative, Phencyclidine (PCP) Screen Negative, Urine Amphetamines Screen Negative, Urine Benzodiazepines Screen Negative, Urine Cocaine Screen Negative, Urine Marijuana (THC) Screen PositiveH 08/31/17 07:55: White Blood Count 7.1, Red Blood Count 3.88L, Hemoglobin 12.8, Hematocrit 38.2, Mean Corpuscular Volume 99, Mean Corpuscular Hemoglobin 32.9H, Mean Corpuscular Hemoglobin Concent 33.4, Red Cell Distribution Width 12.5, Platelet Count 207, Mean Platelet Volume 9.0, Neutrophils (%) (Auto) 50.9, Lymphocytes (%) (Auto) 36.6, Monocytes (%) (Auto) 11.4H, Eosinophils (%) (Auto) 0.3, Basophils (%) ( Auto) 0.8, Troponin I 0.000, Prothrombin Time 9.4, Prothromb Time International Ratio 0.9, Activated Partial Thromboplast Time 21L, C-Reactive Protein, Quantitative 1.8H, Triglycerides Level 53, Cholesterol Level 189, LDL Cholesterol 124H, HDL Cholesterol 52, Cholesterol/HDL Ratio 3.6, Thyroid Stimulating Hormone (TSH) 2.546 Current Medications Medications (Trade) Dose Ordered Sig/Precious Route PRN Reason Start Time Stop Time Status Last Admin Dose Admin Albuterol/ Ipratropium (Albuterol/ Ipratropium) 3 ml Q4H PRN HHN Shortness of Breath 08/30/17 22:00 09/04/17 21:59 Aspirin (ASA) 81 mg DAILY ORAL 09/01/17 09:00 10/01/17 08:59 Diltiazem HCl (Cardizem) 10 mg EVERY HOUR PRN IV heart rate more than 120, 08/30/17 22:00 09/29/17 21:59 Enalaprilat (Vasotec) 2.5 mg Q6H PRN IV sbp more than 160 08/30/17 22:00 09/29/17 21:59 Heparin Sodium (Porcine) (Heparin 5000 units/ml) 5,000 units EVERY 12 HOURS SUBQ 08/31/17 09:00 09/30/17 08:59 08/31/17 08:18 Ketorolac Tromethamine (Toradol 30mg) 30 mg Q6H PRN IV moderate pain ( 4-6) 08/30/17 22:00 09/04/17 21:59 Nitroglycerin (Ntg) 0.4 mg Every 5 Minutes PRN SL Prn Chest Pain 08/30/17 22:00 09/29/17 21:59 Ondansetron HCl (Zofran) 4 mg Q6H PRN IVP Nausea & Vomiting 08/30/17 22:00 09/29/17 21:59 Polyethylene Glycol (Miralax) 17 gm DAILYPRN PRN ORAL Constipation 08/30/17 22:00 09/29/17 21:59 Temazepam (Restoril) 15 mg HSPRN PRN ORAL Insomnia 08/30/17 22:00 09/06/17 21:59 [facility] BLUNT Aug 31, 2017 12:00
[2017-08-31] MEDS ORDERED: Lexiscan 0.4mg/5ml syringe IV ONE (13:00)
--- NOTE | 2017-08-31 13:31 | Cardiology Report ---
APPROVED REPORT EXAM: Two-dimensional and M-mode echocardiogram with Doppler and color Doppler. INDICATION Peripheral Edema Left ventricular function M-Mode DIMENSIONS IVSd0.7 (0.7-1.1cm)Left Atrium (MM)3.6 (1.6-4.0cm) LVDd4.8 (3.5-5.6cm)Aortic Root3.0 (2.0-3.7cm) PWd0.8 (0.7-1.1cm)Aortic Cusp Exc.2.0 (1.5-2.0cm) LVDs3.2 (2.5-4.0cm) PWs1.4 cm Normal left ventricular chamber size, systolic function and wall motion. Left ventricular ejection fraction estimated to be 55-60 %. No evidence of left ventricular hypertrophy. No evidence of pericardial effusion. Mild left atrial enlargement. Right cardiac chamber sizes are within normal limits. Mild focal aortic valve sclerosis with adequate cusp excursion. Mildly thickened mitral valve leaflets with normal excursion. Mild mitral annulus and aortic root calcification. Pulmonic valve not well visualized. Normal tricuspid valve structure. IVC measured at 2.1cm with physiologic collapse. A color flow and spectral Doppler study was performed and revealed: No aortic regurgitation. Trace mitral regurgitation. Mitral diastolic velocities suggests normal diastolic function. Trace tricuspid regurgitation. Tricuspid systolic velocities suggests peak right ventricular systolic pressure of 31 mmHg. Mild pulmonic regurgitation present.
--- NOTE | 2017-08-31 14:43 | Internal Med Progress Note ---
Subjective Physician Name Petr Mcbride Attending Physician Petr Mcbride MD Current Medications Medications (Trade) Dose Ordered Sig/Precious Route PRN Reason Start Time Stop Time Status Last Admin Dose Admin Albuterol/ Ipratropium (Albuterol/ Ipratropium) 3 ml Q4H PRN HHN Shortness of Breath 08/30/17 22:00 09/04/17 21:59 Aspirin (ASA) 81 mg DAILY ORAL 09/01/17 09:00 10/01/17 08:59 Diltiazem HCl (Cardizem) 10 mg EVERY HOUR PRN IV heart rate more than 120, 08/30/17 22:00 09/29/17 21:59 Enalaprilat (Vasotec) 2.5 mg Q6H PRN IV sbp more than 160 08/30/17 22:00 09/29/17 21:59 Heparin Sodium (Porcine) (Heparin 5000 units/ml) 5,000 units EVERY 12 HOURS SUBQ 08/31/17 09:00 09/30/17 08:59 08/31/17 08:18 Ketorolac Tromethamine (Toradol 30mg) 30 mg Q6H PRN IV moderate pain ( 4-6) 08/30/17 22:00 09/04/17 21:59 Nitroglycerin (Ntg) 0.4 mg Every 5 Minutes PRN SL Prn Chest Pain 08/30/17 22:00 09/29/17 21:59 Ondansetron HCl (Zofran) 4 mg Q6H PRN IVP Nausea & Vomiting 08/30/17 22:00 09/29/17 21:59 Polyethylene Glycol (Miralax) 17 gm DAILYPRN PRN ORAL Constipation 08/30/17 22:00 09/29/17 21:59 Temazepam (Restoril) 15 mg HSPRN PRN ORAL Insomnia 08/30/17 22:00 09/06/17 21:59 Allergies: Coded Allergies: AMPICILLIN (Verified Allergy, Mild, Hives, 05/14/13) HYDROCODONE BIT (Verified Allergy, Mild, Hives, 05/14/13) PENICILLINS (Verified Allergy, Mild, Hives, 05/14/13) CEPHALEXIN (Verified Allergy, Unknown, 12/04/16) CLINDAMYCIN (Verified Allergy, Unknown, 12/28/16) TRAMADOL (Verified Allergy, Unknown, 12/04/16) Subjective awake, alert, responsive, NO CP or SOB Objective Last Vital Signs Date Time Temp Pulse Resp B/P (MAP) Pulse Ox O2 Delivery O2 Flow Rate FiO2 08/31/17 12:00 97.2 99 20 108/59 97 Room Air 08/31/17 06:52 21 Laboratory Tests Test 08/30/17 17:48 08/30/17 19:05 08/31/17 07:55 White Blood Count 9.7 K/UL (4.8-10.8) 7.1 K/UL (4.8-10.8) Red Blood Count 4.14 M/UL (4.20-5.40) L 3.88 M/UL (4.20-5.40) L Hemoglobin 13.5 G/DL (12.0-16.0) 12.8 G/DL (12.0-16.0) Hematocrit 40.7 % (37.0-47.0) 38.2 % (37.0-47.0) Mean Corpuscular Volume 98 FL (80-99) 99 FL (80-99) Mean Corpuscular Hemoglobin 32.5 PG (27.0-31.0) H 32.9 PG (27.0-31.0) H Mean Corpuscular Hemoglobin Concent 33.1 G/DL (32.0-36.0) 33.4 G/DL (32.0-36.0) Red Cell Distribution Width 12.6 % (11.6-14.8) 12.5 % (11.6-14.8) Platelet Count 197 K/UL (150-450) 207 K/UL (150-450) Mean Platelet Volume 8.6 FL (6.5-10.1) 9.0 FL (6.5-10.1) Neutrophils (%) (Auto) 43.8 % (45.0-75.0) L 50.9 % (45.0-75.0) Lymphocytes (%) (Auto) 43.7 % (20.0-45.0) 36.6 % (20.0-45.0) Monocytes (%) (Auto) 11.3 % (1.0-10.0) H 11.4 % (1.0-10.0) H Eosinophils (%) (Auto) 0.2 % (0.0-3.0) 0.3 % (0.0-3.0) Basophils (%) (Auto) 1.1 % (0.0-2.0) 0.8 % (0.0-2.0) D-Dimer 0.47 mg/L FEU (0.00-0.49) Sodium Level 142 MMOL/L (136-145) Potassium Level 3.5 MMOL/L (3.5-5.1) Chloride Level 104 MMOL/L (98-107) Carbon Dioxide Level 28 MMOL/L (21-32) Anion Gap 10 mmol/L (5-15) Blood Urea Nitrogen 12 mg/dL (7-18) Creatinine 1.0 MG/DL (0.55-1.30) Estimat Glomerular Filtration Rate > 60 mL/min (>60) Glucose Level 99 MG/DL (74-106) Calcium Level 9.3 MG/DL (8.5-10.1) Total Bilirubin 0.2 MG/DL (0.2-1.0) Aspartate Amino Transf (AST/SGOT) 27 U/L (15-37) Alanine Aminotransferase (ALT/SGPT) 45 U/L (12-78) Alkaline Phosphatase 127 U/L (46-116) H Total Creatine Kinase 139 U/L (26-308) Creatine Kinase MB 1.2 NG/ML (0.0-3.6) Creatine Kinase MB Relative Index 0.8 Troponin I 0.000 ng/mL (0.000-0.056) 0.000 ng/mL (0.000-0.056) Pro-B-Type Natriuretic Peptide 15 pg/mL (0-125) Total Protein 7.7 G/DL (6.4-8.2) Albumin 3.6 G/DL (3.4-5.0) Globulin 4.1 g/dL Albumin/Globulin Ratio 0.9 (1.0-2.7) L Urine Color Pale yellow Urine Appearance Clear Urine pH 8 (4.5-8.0) Urine Specific [place] 1.010 (1.005-1.035) Urine Protein Negative (NEGATIVE) Urine Glucose (UA) Negative (NEGATIVE) Urine Ketones Negative (NEGATIVE) Urine Occult Blood Negative (NEGATIVE) Urine Nitrite Negative (NEGATIVE) Urine Bilirubin Negative (NEGATIVE) Urine Urobilinogen Normal MG/DL (0.0-1.0) Urine Leukocyte Esterase Negative (NEGATIVE) Urine Opiates Screen Negative (NEGATIVE) Urine Barbiturates Screen Negative (NEGATIVE) Phencyclidine (PCP) Screen Negative (NEGATIVE) Urine Amphetamines Screen Negative (NEGATIVE) Urine Benzodiazepines Screen Negative (NEGATIVE) Urine Cocaine Screen Negative (NEGATIVE) Urine Marijuana (THC) Screen Positive (NEGATIVE) H Prothrombin Time 9.4 SEC (9.30-11.50) Prothromb Time International Ratio 0.9 (0.9-1.1) Activated Partial Thromboplast Time 21 SEC (23-33) L C-Reactive Protein, Quantitative 1.8 mg/dL (0.00-0.90) H Triglycerides Level 53 MG/DL (0-200) Cholesterol Level 189 MG/DL (< 200) LDL Cholesterol 124 mg/dL (<100) H HDL Cholesterol 52 MG/DL (40-60) Cholesterol/HDL Ratio 3.6 (3.3-4.4) Thyroid Stimulating Hormone (TSH) 2.546 uiU/mL (0.360-3.740) Objective General: No acute distress, awake and alert HEENT: NCAT, sclera anicteric, PERRL, EOMI. Neck: Supple, no significant jugular venous distention, Lungs: Good inspiratory effort, clear to auscultation bilaterally, no Wheeze or Rales. Heart: Regular rate and rhythm, normal S1/S2, no murmurs Abdomen: soft, nontender, nondistended. Normoactive bowel sounds. / Rectal: Refused and deferred. Extremities: No Cyanosis , clubbing or edema. Neuro: A&O x 3, Able to move all extremities Skin: warm, no rashes or lesions Psych: Normal mood and affect Assessment/Plan Assessment/Plan atypical chest pain right breast Nodule Plan: stress test negative F/U with PMD for breast biopsy as out patient. DC Home today. 2D ECHO Normal left ventricular chamber size, systolic function and wall motion. Left ventricular ejection fraction estimated to be 55-60 %. No evidence of left ventricular hypertrophy. No evidence of pericardial effusion. Mild left atrial enlargement. Right cardiac chamber sizes are within normal limits. Mild focal aortic valve sclerosis with adequate cusp excursion. Mildly thickened mitral valve leaflets with normal excursion. Mild mitral annulus and aortic root calcification. Pulmonic valve not well visualized. Normal tricuspid valve structure. IVC measured at 2.1cm with physiologic collapse. A color flow and spectral Doppler study was performed and revealed: No aortic regurgitation. Trace mitral regurgitation. Mitral diastolic velocities suggests normal diastolic function. Trace tricuspid regurgitation. Tricuspid systolic velocities suggests peak right ventricular systolic pressure of 31 mmHg. Mild pulmonic regurgitation present. Petr Mcbride MD Aug 31, 2017 14:43
--- NOTE | 2017-08-31 15:49 | Diagnostic Imaging Report ---
Indications: Chest pain Technique: Single day single isotope protocol utilized. Initially, resting images obtained using IV administration 10 millicuries 99M technetium Myoview. Subsequently, patient underwent treadmill stress testing. See cardiology report for details. During exercise, IV administration 30.9 mCi 99 M technetium Myoview. SPECT and planar images obtained. SPECT images gated to 8 phases of the cardiac cycle were also obtained, and reformatted into cine images for evaluation of ejection fraction. Comparison: None Findings: Per cardiology report, patient experienced no chest pain. Per cardiology report, resting EKG demonstrates sinus bradycardia no significant ST-T wave changes noted during exercise. Patient achieved a peak heart rate of 151 beats per minute, in axis of the target heart rate of 143 beats per minute. Imaging demonstrates equivocal very subtle slight decreased perfusion at the apex which is less striking on the resting images. No other fixed nor reversible post stress perfusion defects.. Calculated post stress ejection fraction 69%. No focal wall motion abnormality Impression: Nonischemic clinical response to pharmacologic stress, per cardiology report Nonischemic electrocardiographic response to pharmacologic stress, per cardiology report Equivocal tiny reversible post stress perfusion defect at the apex. Suspect more likely artifactual than real but small focus of ischemia not completely excludable. No other evidence of ischemia. Calculated post stress ejection fraction 69%
--- NOTE | 2017-08-31 16:15 | Consultation ---
DATE OF CONSULTATION: 08/31/2017 CARDIOLOGY CONSULTATION CONSULTING PHYSICIAN: Conor Krause M.D. REFERRING PHYSICIAN: Petr Mcbride M.D. REASON FOR CONSULTATION: Management of chest pain and syncope. HISTORY OF PRESENT ILLNESS: The patient is a very unfortunate 52-year-old female, who presented to the hospital with substernal sharp chest pain, nonradiating, not associated with any shortness of breath, diaphoresis, nausea, or vomiting. However, a few days prior to this event, she had loss of consciousness, which was preceded by presyncopal symptoms of dizziness and lightheadedness. That was not the first time she had a syncopal event. Given the chest pain, she decided to come to the hospital for further evaluation and management. PAST MEDICAL HISTORY: None. PAST SURGICAL HISTORY: None. MEDICATIONS: None. ALLERGIES: To acetaminophen, ampicillin, hydrocodone, penicillin, cephalexin, clindamycin, tramadol. SOCIAL HISTORY: She continues to smoke on a daily basis, also marijuana at times. Denies any cocaine or amphetamine use. She does not drink alcohol. REVIEW OF SYSTEMS: A 12-system review done, essentially negative except what mentioned in the history of present illness. PHYSICAL EXAMINATION: VITAL SIGNS: Blood pressure was 122/82, respirations of 20, pulse of 78, temperature 97.7 degrees Fahrenheit, and O2 saturation 99% on room air. GENERAL: The patient is a very pleasant 50-year-old lady, in no apparent respiratory distress. HEENT: Atraumatic and normocephalic. Anicteric. Pupils are equal, round, and reactive to light and accommodation. Extraocular muscles are intact. NECK: JVP less than 5 cm. No carotid bruit. Carotid upstroke is 2+ bilaterally. CARDIOVASCULAR: Normal S1 and S2. Regular rate and rhythm. No murmurs, gallops, or rubs. PMI is at 4th intercostal space in the midclavicular line. LUNGS: Clear to auscultation bilaterally. ABDOMEN: Soft, nontender, and nondistended. No hepatosplenomegaly. Positive bowel sounds. EXTREMITIES: No evidence of edema, clubbing, or cyanosis. LABORATORY FINDINGS: Sodium is 142, potassium is 3.5, chloride 104, bicarbonate 28, BUN of 12, creatinine 1.0, glucose 99, calcium is 9.3. Troponin I x1 negative. ProBNP 15. D-dimer is 0.47. WBC 9.7, hemoglobin 13.5, hematocrit 40.7, platelet count is 197. Toxicology showed positive marijuana. A 12-lead electrocardiogram showed sinus rhythm with no ST and T-wave abnormalities. Single premature atrial contractions. Chest x-ray not available in the chart. ASSESSMENT AND PLAN: The patient is seen in Cardiology consultation at the request of Dr. Mcbride: 1. Atypical chest pain. She is scheduled for a nuclear stress test, which will be done today to rule out obstructive coronary artery disease. Further diagnostic and therapeutic decision will be based on results of above test. We would like to also obtain 2D echocardiography for assessment of left ventricular systolic function. 2. History of polysubstance abuse including tobacco and marijuana. 3. History of syncope preceded by presyncopal symptoms of dizziness and lightheadedness, recurrent. We would like to rule out coronary artery disease. A 2D echocardiography for assessment of LV systolic function and diastolic function. Hydration methods advised to the patient. Orthostatic vitals also required. Neurology consultation will also be needed. I would like to thank, Dr. Mcbride, for the courtesy of this consultation. Conor Krause M.D. DR: Amanda JOB#: [id number] CC:
[2017-09-01] MEDS ORDERED: Aspirin Baby 81mg ORAL SCH (09:00)
--- NOTE | 2017-09-03 17:15 | Discharge Summary 2 SIG ---
DATE OF ADMISSION: 08/30/2017 DATE OF DISCHARGE: 08/31/2017 REASON FOR ADMISSION: 52-year-old female without any past medical history except right bundle-branch block, recently diagnosed, presented to the emergency department complaining of chest pain, left-sided, retrosternal. There was no nausea, no vomiting, no diaphoresis, no exertional component, no shortness of breath. The patient had a recent history of multiple recurrent syncope episodes. First troponin was negative. The patient with a history of smoking, smokes about 10 cigarettes a day over 30 years. She also smokes marijuana. D-dimer -0.47 Electrolytes stable. ProBNP WNL. EKG revealed no acute ischemic changes. The patient was admitted for further management for chest pain, rule out acute coronary syndrome. HOSPITAL STAY: The patient was admitted to telemetry floor. Serial troponin were negative. EKG revealed no acute ischemic changes; therefore, the patient was ruled out for acute RI. Cardiology consult was requested. Echocardiogram revealed preserved ejection fraction of 55% to 60% and right ventricular systolic pressure of 31. No evidence of wall motion abnormality. CTA revealed no evidence of pulmonary emboli, but demonstrated R breast 15 mm nodule. Lipid panel was stable. The patient was started on aspirin. Pain management provided. DVT prophylaxis provided. The patient was hydrated. Blood pressure was closely monitored. Stress test subsequently was essentially negative. Ejection fraction -69%. The patient was stable for discharge. Follow up with the primary medical doctor. Due to the rapid and unexpected improvement in the patient's condition, the patient was discharged in one day. FINAL DIAGNOSES: 1. Atypical chest pain. 2. Recent episode of syncope. 3. Right bundle-branch block. 4. History of p tobacco and marijuana abuse 5. Right breast nodule. DISCHARGE MEDICATIONS: See medication reconciliation list. DISCHARGE INSTRUCTIONS: The patient was discharged home. Follow up with the primary medical doctor for breast biopsy as outpatient. Petr Mcbride M.D. I have been assigned to dictate discharge summary on this account and I was not involved in the patient's management. Otilia Johns N.P. ([place]te[place]) DR: CARLY JOB#: [id number] CC: JONAS
--- NOTE | 2017-09-11 02:04 | Physician Query ---
PLEASE COMPLETE THE DOCUMENT BEFORE SIGNING Dear Dr. AIDEE CASTANEDA M.D. Date: 09/10/2017 [employer]/CD[employer]' Name:[facility] [facility] Exercise your independent professional judgment when responding to query. Questions asked do not imply particular answer is desired or expected. We greatly appreciate your clarification on this issue. Clinical Documentation States: REASON FOR ADMISSION: 52-year-old female without any past medical history except right bundle-branch block, recently diagnosed, presented to the emergency department complaining of chest pain, left-sided, retrosternal. There was no nausea, no vomiting, no diaphoresis, no exertional component, no shortness of breath. First troponin was negative. The patient with a history of smoking, smokes about 10 cigarettes a day over 30 years. She also smokes marijuana. D-dimer -0.47 Electrolytes stable. ProBNP WNL. EKG revealed no acute ischemic changes. Clinical Findings Show: EKG = NEGATIVE, Troponin = NEGATIVE, ECHO = EF = _55-60% CTA revealed no evidence of pulmonary emboli, but demonstrated R breast 15 mm nodule Please document the suspected etiology of Chest Pain: a.Type: []Cardiac []Non-cardiac []Unspecified b.Etiology - cardiac [] Aortic dissection []Mitral valve prolapsed [] Acute myocardial infarction []Spasm of coronary arteries [] Coronary Artery Disease []Pericarditis c.Etiology - non-cardiac [] Anxiety []Pleurisy [] Cancer []Pneumonia, type [] Costochondritis []Pneumothorax [] GERD/Esophagitis []Pulmonary embolism [] Unable to determine []Other: Please also document in your Progress Notes and/or Discharge Summary and indicate if the condition was present on admission. Jonh WANGD
--- NOTE | 2017-09-18 14:51 | Cardiology Report ---
APPROVED REPORT EKG Measurement Heart [id number] Sinus rhythm with marked sinus arrhythmia Otherwise normal ECG
== END 2017-08-31 16:09 | disposition home or self-care (01) | DRG 198 ==
LOC: EMR 18:27 → 2E 19:31 → EDBEDREQ 20:11
DX: I20.1 Angina pectoris with documented spasm (principal); F17.200 Nicotine dependence, unspecified, uncomplicated; I45.10 Unspecified right bundle-branch block; Z88.6 Allergy status to analgesic agent; Z88.1 Allergy status to other antibiotic agents; Z88.0 Allergy status to penicillin; Z88.8 Allergy status to other drugs, medicaments and biological substances; F12.10 Cannabis abuse, uncomplicated; N63.10 Unspecified lump in the right breast, unspecified quadrant
CPT/HCPCS: 36415; 71010; 71275; 78452; 80053; 80061; 80307; 81003; 82550; 82553; 83880; 84443; 84484; 85025; 85379; 85610; 85730; 86140; 93005; 93017; 93306; 94664; 99285; J2785

== ENCOUNTER 2017-10-18 07:41 | Emergency (ER) | payer MEDICAID ==
[~2017-10-18] VITALS: Ht 162.6 cm; Wt 77.1 kg
[~2017-10-18 07:41] MED LIST changes: +FERROUS SULFAT325 MG ORAL; +WOMEN'S MULTI200 MCG PO
[2017-10-18 08:38] LABS: APPEARANCE,URINE CLEAR; BILIRUBIN, URINE NEGATIVE (NEGATIVE); COLOR,URINE PALE YELLOW; GLUCOSE, URINE (UA) NEGATIVE (NEGATIVE); KETONES,URINE NEGATIVE (NEGATIVE); LEUKOCYTE ESTERASE ,URINE 2+ (NEGATIVE); NITRITE,URINE NEGATIVE (NEGATIVE); PH,URINE 7 (4.5-8.0); PROTEIN,URINE 1+ (NEGATIVE); UROBILINOGEN,URINE NORMAL MG/DL (0.0-1.0)
[2017-10-18] MEDS ORDERED: BACTRIM DS TAB1 EAC1 ORAL (08:47)
[2017-10-18 08:55] VITALS: BP 134/99
--- NOTE | 2017-10-18 08:57 | Emergency Room Report ---
History of Present Illness General Chief Complaint: Lower Back Pain or Injury Source: Patient Present Illness HPI 52-year-old female walks in with 2 days of right flank pain, associated with dysuria, "feels like my bladder infection". Patient states she is similar symptoms last year, resolved with antibiotics. Denies nausea or vomiting or abdominal pain or fever or chills. Patient states she is allergic to most antibiotics. Allergies: Coded Allergies: AMPICILLIN (Verified Allergy, Mild, Hives, 05/14/13) HYDROCODONE BIT (Verified Allergy, Mild, Hives, 05/14/13) PENICILLINS (Verified Allergy, Mild, Hives, 05/14/13) CEPHALEXIN (Verified Allergy, Unknown, 12/04/16) CLINDAMYCIN (Verified Allergy, Unknown, 12/28/16) TRAMADOL (Verified Allergy, Unknown, 12/04/16) Patient History Past Medical History: none Past Surgical History: none Pertinent Family History: none Social History: Denies: smoking, alcohol use, drug use Last Menstrual Period: na Now: No Immunizations: UTD Reviewed Nursing Documentation: PMH: Agreed, PSxH: Agreed Nursing Documentation-PMH Past Medical History: No History, Except For Hx Cardiac Problems: Yes - RIGHT BUNDLE BRANCH BLOCK Hx Cancer: No Hx Gastrointestinal Problems: No Hx Neurological Problems: Yes Hx Syncope: Yes Review of Systems All Other Systems: negative except mentioned in HPI Physical Exam Vital Signs Date Time Temp Pulse Resp B/P (MAP) Pulse Ox O2 Delivery O2 Flow Rate FiO2 10/18/17 07:52 99.5 101 18 109/58 99 Room Air Sp02 EP Interpretation: reviewed, normal General Appearance: normal inspection, well appearing, no apparent distress, alert, GCS 15, non-toxic Head: normocephalic, atraumatic Eyes: bilateral eye PERRL, bilateral eye EOMI ENT: normal ENT inspection, hearing grossly normal, normal pharynx, no angioedema, normal voice, TMs + canals normal, uvula midline, moist mucus membranes Neck: normal inspection, full range of motion, supple, thyroid normal, no meningismus, no bony tend Respiratory: normal inspection, lungs clear, normal breath sounds, no rhonchi, no respiratory distress, no retraction, no accessory muscle use, no wheezing, speaking full sentences Cardiovascular #1: regular rate, rhythm, no edema, no JVD, normal capillary refill Gastrointestinal: normal inspection, normal bowel sounds, non tender, soft, no mass, no peritonitis, non-distended, no guarding, no hernia, no pulsatile mass Genitourinary: CVA tenderness (R) Musculoskeletal: normal inspection, back normal, normal range of motion, no calf tenderness, pelvis stable, Hollis's Sign negative Neurologic: normal inspection, alert, oriented x3, responsive, referral and information aide III-XII nml as tested, motor strength/tone normal, cerebellar normal, normal gait, speech normal Psychiatric: normal inspection, judgement/insight normal, mood/affect normal, no suicidal/homicidal ideation, no delusions Skin: normal inspection, normal color, no rash Lymphatic: normal inspection, no adenopathy Medical Decision Making Diagnostic Impression: Primary Impression: Pyelonephritis Additional Impression: Right flank pain ER Course 52-year-old female with 2 days of right flank pain, clinical pyelonephritis. Vital signs stable, and afebrile. Well-appearing nonseptic appearing, tolerating by mouth in ER. No risk factors require admission for IV antibiotics for pyelonephritis. Was given prescription for Bactrim, does not have known allergy to Bactrim ER course: Patient has remained stable during ED stay. Disposition: Patient is to be discharged to home. Prescriptions given are bactrim Patient is instructed to follow up with their primary care doctor within 5 days. Strict return precautions discussed with patient such as fever, chills, worsening/severe pain, nausea, vomiting, which may indicate severe illness. Patient verbalizes understanding and agrees with plan. Please note that this Emergency Department Report was dictated using [employer] admin technology software, occasionally this can lead to erroneous entry secondary to interpretation by the dictation equipment Last Vital Signs Date Time Temp Pulse Resp B/P (MAP) Pulse Ox O2 Delivery O2 Flow Rate FiO2 10/18/17 07:52 99.5 101 18 109/58 99 Room Air Status: improved Disposition: HOME, SELF-CARE Condition: Improved Scripts Trimethoprim/Sulfamethoxazole 160/800* (BACTRIM DS TABLET*) 1 Each Tablet 1 TAB ORAL Q12H for 7 Days, #14 TAB 0 Refills Prov: GLADYS MACDONALD M.D. 10/18/17 Patient Instructions: Pyelonephritis, Adult, [id number] GLADYS MACDONALD M.D. Oct 18, 2017 08:57
== END 2017-10-18 08:55 | disposition home or self-care (01) ==
LOC: EMR 08:30
DX: N12 Tubulo-interstitial nephritis, not specified as acute or chronic (principal); Z88.0 Allergy status to penicillin; Z88.8 Allergy status to other drugs, medicaments and biological substances
CPT/HCPCS: 81003; 87086; 87181; 99283

== ENCOUNTER 2019-10-09 06:53 | Emergency (ER) | payer MEDICARE, MEDICAID ==
[~2019-10-09] VITALS: Ht 162.6 cm; Wt 77.1 kg
[~2019-10-09 06:53] MED LIST changes: +BACTRIM DS TAB1 EAC1 ORAL
[2019-10-09 07:10] VITALS: BP 94/64
--- NOTE | 2019-10-09 07:10 | NUR ---
ED Nurse Note: pt ambulated into ED from home. Pt reports right sided pain and claims this is a recurring issue of kidney pain that has occured intermittently over the last several years. Pt reports pain 8/10, vital signs in stable condition. Pt resting in bed.
--- NOTE | 2019-10-09 07:13 | NUR ---
ED Nurse Note: ERMD at bedside
[2019-10-09] MEDS ORDERED: Acetaminophen 500mg (ES) tab ORAL ONE (07:15)
--- NOTE | 2019-10-09 07:17 | Emergency Room Report ---
History of Present Illness General Chief Complaint: Pain Source: Patient Present Illness HPI Disclaimer: Please note that this report is being documented using DR[employer] technology. This can lead to erroneous entry secondary to incorrect interpretation by the dictating instrument. HPI: 54-year-old female presents for evaluation of right-sided flank pain. Symptoms began last night. Notes a constant aching in the area without associated dysuria or hematuria. States is exactly how her prior UTI/ pyelonephritis infections have presented. No antibiotics recently. She is allergic to multiple antibiotics including Keflex, penicillins, clindamycin. She has been treated successfully with Bactrim in the past. Denies any fevers, vomiting, diarrhea or other symptoms at this time. PMH: Recurrent UTIs PSH: Reviewed Allergies: Ampicillin, Keflex, clindamycin, penicillins and tramadol noted Social Hx: Denies drug or alcohol abuse Allergies: Coded Allergies: AMPICILLIN (Verified Allergy, Mild, Hives, 05/14/13) HYDROCODONE BIT (Verified Allergy, Mild, Hives, 05/14/13) PENICILLINS (Verified Allergy, Mild, Hives, 05/14/13) CEPHALEXIN (Verified Allergy, Unknown, 12/04/16) CLINDAMYCIN (Verified Allergy, Unknown, 12/28/16) TRAMADOL (Verified Allergy, Unknown, 12/04/16) Patient History Now: No Nursing Documentation-PMH Hx Cardiac Problems: Yes - RIGHT BUNDLE BRANCH BLOCK Hx Cancer: No Hx Gastrointestinal Problems: No Hx Neurological Problems: Yes Hx Syncope: Yes Review of Systems All Other Systems: negative except mentioned in HPI Physical Exam Vital Signs Date Time Temp Pulse Resp B/P (MAP) Pulse Ox O2 Delivery O2 Flow Rate FiO2 10/09/19 06:58 99.0 101 19 92/64 (73) 95 Room Air General: Awake and alert, no acute distress HEENT: NC/AT. EOMI. Resp: Normal work of breathing. Abdomen: Abdomen is soft, nondistended. Nontender Skin: Intact. No abrasions, laceration or rash over the exposed skin MSK: Normal tone and bulk. Moving all extremities. No obvious deformity. Neuro: Awake and alert. Mentating appropriately. Back/Spine: Right-sided CVA tenderness. No bruising. No tenderness on the left. Medical Decision Making Diagnostic Impression: Primary Impression: Flank pain Additional Impression: Myalgia ER Course 54-year-old female with past history of UTI and pyelonephritis presents for evaluation of right-sided pain, flank pain beginning yesterday. Patient denies dysuria or hematuria, fever, chills, vomiting, diarrhea or other signs of significant infection. Differential includes but is not limited to UTI, pyelonephritis, myalgias, viral syndrome. Her has had a flulike illness for the past week and presents to the emergency department complaining of diffuse body pains. Urinalysis does not show signs of gross infection. Patient is confident that this is likely early pyelonephritis infection. We will start her on NSAIDs for pain and encouraged her to drink plenty of fluids. Will prescribe Bactrim to use if symptoms worsen and advised her to start taking the medication if she develops dysuria, hematuria, fever, worsening flank pain and to follow-up with her PMD/clinic. She will follow-up as an outpatient for the RBCs in her urine. Patient understands and agrees with this treatment plan. She is well-appearing with stable vital signs. Stable for outpatient follow-up. Will be discharged home. Laboratory Tests Test 10/09/19 07:15 Urine Color Pale yellow Urine Appearance Clear Urine pH 6 (4.5-8.0) Urine Specific [place] 1.015 (1.005-1.035) Urine Protein Negative (NEGATIVE) Urine Glucose (UA) Negative (NEGATIVE) Urine Ketones 3+ (NEGATIVE) H Urine Blood 4+ (NEGATIVE) H Urine Nitrite Negative (NEGATIVE) Urine Bilirubin Negative (NEGATIVE) Urine Urobilinogen Normal MG/DL (0.0-1.0) Urine Leukocyte Esterase Negative (NEGATIVE) Urine RBC 5-10 /HPF (0 - 2) H Urine WBC 0-2 /HPF (0 - 2) Urine Squamous Epithelial Cells Few /LPF (NONE/OCC) Urine Bacteria Few /HPF (NONE) Last Vital Signs Date Time Temp Pulse Resp B/P (MAP) Pulse Ox O2 Delivery O2 Flow Rate FiO2 10/09/19 06:58 99.0 101 19 92/64 (73) 95 Room Air Disposition: HOME, SELF-CARE Condition: Stable Scripts Acetaminophen* (ACETAMINOPHEN 325MG TABLET*) 325 Mg Tablet 650 MG ORAL Q6H PRN for For Pain for 10 Days, #40 TAB Prov: Jaxson Longoria MD 10/09/19 Trimethoprim/Sulfamethoxazole 160/800* (BACTRIM DS TABLET*) 1 Each Tablet 1 TAB ORAL Q12H for 5 Days, #10 TAB 0 Refills Prov: Jaxson Longoria MD 10/09/19 Ibuprofen* (MOTRIN*) 600 Mg Tablet 600 MG ORAL Q8H PRN for For Pain, #30 TAB 0 Refills Prov: Jaxson Longoria MD 10/09/19 Jaxson Longoria MD Oct 09, 2019 07:17
[2019-10-09 07:34] LABS: APPEARANCE,URINE CLEAR; BILIRUBIN, URINE NEGATIVE (NEGATIVE); COLOR,URINE PALE YELLOW; GLUCOSE, URINE (UA) NEGATIVE (NEGATIVE); KETONES,URINE 3+ (NEGATIVE); LEUKOCYTE ESTERASE ,URINE NEGATIVE (NEGATIVE); NITRITE,URINE NEGATIVE (NEGATIVE); PH,URINE 6 (4.5-8.0); PROTEIN,URINE NEGATIVE (NEGATIVE); UROBILINOGEN,URINE NORMAL MG/DL (0.0-1.0)
[2019-10-09] MEDS ORDERED: ACETAMINOPHEN325 M1 ORAL (07:45)
[2019-10-09] MEDS ORDERED: BACTRIM DS TAB1 EAC1 ORAL (07:45)
[2019-10-09] MEDS ORDERED: IBUPROFEN600 MG ORAL (07:45)
[2019-10-09 08:13] VITALS: BP 92/66
--- NOTE | 2019-10-09 08:13 | NUR ---
ER DISCHARGE NOTE: Patient is cleared to be discharged home per ERMD, pt is aox4, on room air, with stable vital signs.Pt pain 6/10. pt was given dc and prescription instructions, pt was able to verbalize understanding, pt id band. pt is able to ambulate with steady gait. pt took all belongings.
== END 2019-10-09 08:13 | disposition home or self-care (01) ==
LOC: EMR 07:15
DX: R10.9 Unspecified abdominal pain (principal); M79.10 Myalgia, unspecified site; I45.10 Unspecified right bundle-branch block; Z88.1 Allergy status to other antibiotic agents; Z88.0 Allergy status to penicillin; Z88.5 Allergy status to narcotic agent
CPT/HCPCS: 81003; 99283